=== PATIENT | male | born 1955 | race African-American/Black ===

== ENCOUNTER 2016-12-17 09:24 | Day surgery (SDC) | payer OTHER ==
[2016-12-14 10:32] VITALS: BMI 28.9
[~2016-12-17 09:24] MED LIST: BUPIVACAINE HCL/PF 0.25% (2.5MG/ML) 10 ML VIAL IJ ONE; methylPREDNISolone ACET (DEPO) 40 MG/1 ML VIAL IM ONE; oxyCODONE HCL 10 MG SUSTAINED ACTING TABLET PO ONE
[2016-12-17] MEDS ORDERED: MIDAZOLAM HCL 2 MG/2 ML SINGLE DOSE VIAL ONE (10:22)
[2016-12-17] MEDS ORDERED: methylPREDNISolone ACET (DEPO) 40 MG/1 ML VIAL ONE (10:30)
[2016-12-17] MEDS ORDERED: LIDOCAINE 1%/EPI 1:100000 (20 ML MULTI DOSE VIAL) ONE (10:31)
[2016-12-17] MEDS ORDERED: BUPIVACAINE HCL/PF 2.5 MG/ML - 30 ML VIAL IJ ONE (10:31)
[2016-12-17] MEDS ORDERED: THROMBIN (BOVINE) 5,000 UNIT VIAL TP ONE ×2 (10:31→11:20)
--- NOTE | 2016-12-17 10:44 | HP ---
History & Physical Update - History History: No Change - Physical Physical: No Change - Assessment Assessment: No Change - Plan Plan: No Change
[2016-12-17] MEDS ORDERED: ceFAZolin SODIUM 1 GM VIAL ONE (10:58)
[2016-12-17] MEDS ORDERED: ONDANSETRON 4 MG/2 ML VIAL ONE (11:03)
[2016-12-17] MEDS ORDERED: DEXAMETHASONE SOD PHOSPHATE 4 MG/1 ML VIAL ONE (11:03)
[2016-12-17] MEDS ORDERED: LIDOCAINE 1%/EPI 1:100000 (50 ML MULTI DOSE VIAL) INF ONE (11:04)
[2016-12-17] MEDS ORDERED: GELATIN SPONGE,ABSORBABLE 1 GM PACKET TP ONE (11:20)
[2016-12-17] MEDS ORDERED: oxyCODONE HCL 5 MG TABLET PO PRN (12:13)
[2016-12-17] MEDS ORDERED: ONDANSETRON 4 MG/2 ML VIAL IVPUSH PRN (12:13)
[2016-12-17] MEDS ORDERED: LACTATED RINGERS SOLUTION 1,000 ML IV SCH (12:15)
[2016-12-17] MEDS ORDERED: ACETAMINOPHEN/CAFFEINE/BUTALBITAL 1 TAB PO ONE (13:30)
--- NOTE | 2016-12-17 13:33 | OP ---
Operative Note - Note: Operative Date: 12/17/16 Pre-Operative Diagnosis: spinal stenosis Operation: L4-L5 laminectomy, dural tear Surgeon: Jony Barnard [place] Installer: Jeannine Huff Anesthesiologist/SOIL CONSERVATION TECHNICIAN: Chantel Stroud Anesthesia: Spinal Estimated Blood Loss (mls): 30 Fluid Volume Replaced (mls): 1,000 Operative Report Dictated: Yes
--- NOTE | 2016-12-17 13:34 | SURG ---
Surgery Managing Member Note Managing Member: Jeannine Huff PA-C Date of Service: 12/17/16 Diagnosis: spinal stenosis Procedure: L4-L5 laminectomy, repair of dural tear I was present for the entirety of the operative procedure. For further detail, please refer to operative report. Visit type - Case Type Case Type: Scheduled Admission - Emergency Emergency Visit: No - New patient This patient is new to me today: Yes Date on this admission: 12/17/16
--- NOTE | 2016-12-17 14:22 | OP ---
DATE OF OPERATION: 12/17/2016 PREOPERATIVE DIAGNOSIS: Spinal stenosis, L4-5. POSTOPERATIVE DIAGNOSIS: Spinal stenosis, L4-5. PROCEDURE PERFORMED: Laminectomy, L4-5. SURGEON: Jony Barnard MD FRICTION SAW OPERATOR: YARA Villalta ESTIMATED BLOOD LOSS: 50 mL INTRAVENOUS FLUIDS: Per Anesthesia. ANESTHESIA: Spinal. COMPLICATIONS: Dural tear repaired with patch. DISPOSITION: Patient was brought to PACU in stable condition. INDICATION FOR SURGERY: The patient is a 61-year-old gentleman who has been suffering from pain from his back down his legs. X-rays and MRI were completed which noted that he had spinal stenosis at L4-5. He had gone through an exhaustive course of treatment for this, which included medications, physical therapy as well as injections. Unfortunately, his pain continued to persist despite all this. At this point, risks, benefits, and alternatives were discussed, and the patient consented to surgery. DESCRIPTION OF PROCEDURE: Patient was brought to the operating room by the anesthesia staff. After appropriate patient identification was performed, spinal anesthesia was given. Patient was placed prone onto the Antonio frame with all areas of bony prominences well padded. At this time, 2 needles were placed into his back to stalin off the L4-5 segment, and x-ray was taken to confirm this as correct. The needles were removed, and 10 mL of lidocaine with epinephrine was injected into his back at this time. His back was prepped and draped in a sterile manner. At this point, timeout was completed. An incision was made from the top of L4 down to the bottom of L5. Dissection was carried down to the fascia. Fascia was then split open at this time, and appropriate retractors were then placed in. A spinal needle was placed onto the L4 lamina. An x-ray was taken to confirm this as correct. The needle was removed, and the microscope was brought in. At this point, the interspinous ligament at L4-5 was removed. Portion of the L4 and L5 spinal processes were removed. Portions of the lamina were removed. A full decompression was performed such that, by the end of the procedure, both L5 nerve roots appeared to be well decompressed. A small dural tear was noted at this time. A DuraGen patch as well as DuraSeal was placed on, and there appeared to be no leakage. All bleeding was well controlled at this time. The fascia was closed with a No. 1 Vicryl suture. The subcutaneous tissues were closed with 2-0 Vicryl suture. Skin was closed with 3-0 Monocryl suture. Dermabond was applied. Steri-Strips were applied. A sterile dressing was applied. Patient was placed supine on the OR bed and brought to the PACU in stable condition. Scot [id number]
[2016-12-17 14:34] VITALS: TEMP 98.1
[2016-12-17 17:25] VITALS: BP 118/69; PULSE 70
== END 2016-12-17 16:20 | disposition home or self-care (01) ==
LOC: FASU 09:24 → EDSTATUS 11:30 → FASU 16:20
PROVIDERS: ATTEND Orthopaedic Surgery Orthopaedic Surgery of the Spine
PROC: 01NB0ZZ Release Lumbar Nerve, Open Approach (ICD-10-PCS; principal; 2016-12-17 10:45)
DX: M48.061 Spinal stenosis, lumbar region without neurogenic claudication (principal)
CPT/HCPCS: 72100-TC; 76000-TC; 94760